=== PATIENT | female | born 1990 | race Caucasian/White ===

== ENCOUNTER 2017-03-02 14:59 | Outpatient (CLI) | payer OTHER | END 2017-03-02 15:00 | disposition home or self-care (01) | LOC: NAV LAB 14:59 | PROVIDERS: ATTEND Chiropractor | DX: Z32.00 Encounter for pregnancy test, result unknown (principal) | CPT/HCPCS: 36415; 84702 ==

== ENCOUNTER 2022-06-09 18:02 | Emergency (ER) | payer OTHER, MEDICAID ==
[2022-06-09] MEDS ORDERED: Ondansetron ODT 4 MG TAB ONE (18:57)
[2022-06-09] MEDS ORDERED: Amoxicillin/Potassium Clav 875 MG TAB ONE (18:57)
[2022-06-09] MEDS ORDERED: Ibuprofen 800 MG TAB ONE (18:57)
== END 2022-06-09 19:03 | disposition home or self-care (01) ==
LOC: NAV ERS 18:02
DX: H65.91 Unspecified nonsuppurative otitis media, right ear (principal)
CPT/HCPCS: 99283; Q0162